=== PATIENT | female | born 1995 | race Caucasian/White ===

== ENCOUNTER 2018-01-22 05:57 | Inpatient (IN) | payer OTHER ==
--- NOTE | 2018-01-21 20:29 | History & Physical Pre-Op ---
General Information and HPI History of Present Illness: This patient is a 23-year-old 1 para 0 LMP 02/24/2017 EDC 01/26/2018 at 39 weeks and 2 days who presents for scheduled secondary to breech presentation. care is been complete and remarkable for gestational diabetes comanage with [facility], of which patient has been noncompliant with calling in her glucose values. She had a hemoglobin A1c taken today and the results are pending. Patient underwent failed external cephalic version of breech presentation secondary to pain. Allergies/Medications Allergies: Coded Allergies: NO KNOWN ALLERGIES (03/24/16) Home Med list Acetaminophen (Tylenol) 325 MG TAB PAIN (Reported) OXYCODONE HCL/ACETAMINOPHEN (Percocet 5-325 MG Tablet) 325 MG/5 MG TAB 1 TAB PO Q4P PRN PAIN SCALE 1-4 Yibuprofen (Motrin 800MG Tab) 800 MG TAB 800 MG PO Q6P PRN PAIN Past History Medical History Tetanus Vaccine: Surgical History Pertinent Surgical History: N cystectomy (pre) Review of Systems Review of Systems Constitutional: Reports: no symptoms. EENTM: Reports: no symptoms. Cardiovascular: Reports: no symptoms. Respiratory: Reports: no symptoms. GI: Reports: no symptoms. Genitourinary: Reports: no symptoms. Musculoskeletal: Reports: no symptoms. Skin: Reports: no symptoms. Neurological/Psychological: Reports: no symptoms. Hematologic/Endocrine: Reports: no symptoms. Immunologic/Allergic: Reports: no symptoms. All Other Systems: Reviewed and Negative Exam & Diagnostic Data Last 24 Hrs of Vital Signs/I&O vss Physical Exam: HEENT: Normocephalic atraumatic Neck: No JVD no thyromegaly Chest: Clear to auscultation bilaterally Cardiovascular: Normal S1, S2 Abdomen: Obese, cephalic, breech, estimated weight 7 pounds Extremities: No clubbing cyanosis or edema Neurologic: Nonfocal Assessment/Plan Assessment/Plan: Breech presentation at 39 weeks Plan: Primary section As Ranked By This Provider Problem List: 1. Breech presentation 2. Gestational diabetes
[~2018-01-22] VITALS: Ht 167.6 cm; Wt 126.6 kg
[~2018-01-22 05:57] MED LIST: MOTRIN 800MG T800 MG PO; OXYCODONE5 M1; PERCOCET 325 MG1 TA2 PO; TYLENOL325 MG
[2018-01-22 10:50] VITALS: BP 110/58
--- NOTE | 2018-01-22 17:53 | Operative Report ---
Operative/Inv Procedure Report Surgery Date: 01/22/18 Name of Procedure: Primary Pre-Operative Diagnosis: Breech presentation, failed external cephalic version Post-Operative Diagnosis: Same Estimated Blood Loss: 650 Surgeon/Case Repairer: Doris Tran MD,Satnam Martinez MD Anesthesia: laryngeal mask airway, spinal Operative/Procedure Note Note: The patient was brought to the operating room she placed on the OR table in the sitting position where she underwent spinal anesthetic without complication. She was repositioned into dorsal supine with a block under her right. Large Venodyne boots were placed on the extremities and activated. A Valdez catheter was inserted into the bladder and drained clear yellow urine. The abdomen was prepped and draped in the usual sterile fashion and tested. A Pfannenstiel skin incision was made with a scalpel and taken down to the layer of the fascia. The fascia was nicked in the midline and extended bilaterally. The underlying rectus muscles were and the peritoneal cavity was entered bluntly. A Timothy bladder blade was inserted to protect the bladder from the operative field. A bladder flap was created using Metzenbaum scissors and this was placed behind the bladder blade. A low transverse uterine incision was made with scalpel and this was extended bilaterally. A live-born female was delivered from jaspal breech presentation through the appropriate maneuvers and him and placed on the operative field. The cord was clamped and cut the nares and mouth were suctioned and the baby was handed off to the waiting trade manager. The placenta was then manually removed intact with three-vessel cord and sent to pathology. The uterus was then exteriorized and wiped clean with a wet lap sponge of all clot and tissue debris. The uterus was closed in 2 layers the first of 0 Polysorb followed by the second imbricating the first also 0 Polysorb. The fallopian tubes and ovaries appeared normal bilaterally. The abdomen and pelvis were copiously irrigated with warm normal saline. The uterus was placed back into the abdominal cavity and the suture line is once again visualized and noted to be hemostatic. At this point the rectus muscle with the peritoneum was reapproximated with a mattress suture. Fascia was then closed using #1 Polysorb in a running nonlocking fashion. Subcutaneous tissues were irrigated and coagulated were needed. The skin was closed using domi and a dry sterile dressing was applied to the wound. The patient was then transferred to recovery in satisfactory condition. All needle, sponge, and instrument counts were correct at the end of the procedure 4.
--- NOTE | 2018-01-22 17:53 | Labor & Delivery Summary ---
Delivery Summary Section: Section: primary Indication: Breech presentation Anesthesia: Spinal, LMA Placenta: Placenta: normal, 3 vessel, manual Baby's Weight: Pending skin the skin Apgars - 1 Min: 9 Apgars - 5 Min: 9
[2018-01-23 09:11] LABS: ABSOLUTE BASOPHIL COUNT 0 /CUMM (0.0-0.2); ABSOLUTE EOSINOPHIL COUNT 0.3 /CUMM (0.0-0.7); ABSOLUTE GRANULOCYTE CT 6.1 /CUMM (1.4-6.5); ABSOLUTE LYMPH COUNT 3.1 /CUMM (1.2-3.4); ABSOLUTE MONOCYTE COUNT 0.8 /CUMM (0.10-0.60); BASOPHIL % 0.4 % (0.0-2.0); EOSINOPHIL % 2.5 % (0-5); GRANULOCYTE % 59.8 % (42.2-75.2); HEMATOCRIT 28.3 % (37-47); MEAN CORPUSCULAR HGB 22.8 PG (27.0-31.0); MEAN CORPUSCULAR HGB CONC 31.5 G/DL (33.0-37.0); MEAN CORPUSCULAR VOLUME 72.3 FL (81.0-99.0); MEAN PLATELET VOLUME 9.5 FL (7.4-10.4); PLATELET COUNT 292 /CUMM (130-400); RBC DISTRIBUTION WIDTH 16.1 % (11.5-14.5); RED BLOOD CELL CT 3.92 /CUMM (4.20-5.40); WHITE BLOOD CELL COUNT 10.3 /CUMM (4.8-10.8)
--- NOTE | 2018-01-23 10:49 | PN- OBGYN ---
Surgical Brief Attending Note Brief Attending Note: Patient seen and evaluated. OOB to chair C/o pain but meds are helping Denies nausea nor vomiting AVSS Lungs clear Abdomen soft and bowel sounds present and wound intact (Serena) Extremities 1+ edema hct 28 and platelets wnl Rh positive POD#1 s/p LTCS for malpresentation and complicated by GDM. Advance diet as tolerated Pain mgmt strategies reviewed and benefits of binder reviewed VTE risk reduction with lovenox Anemia. MCV 70s. Continue on iron supplementation. GDM. Follow up A1c levels and will need 2 hour GTT in 6-12 weeks.
--- NOTE | 2018-01-24 09:19 | PN- OBGYN ---
Surgical Brief Attending Note Brief Attending Note: Seen and evaluated Denies complaints Flatus noted No bowel movement yet Denies nausea nor vomiting AVSS Lungs clear Abdomen soft and incisional tenderness Wound area intact POD#2 s/p LTCS for malpresentation Tolerating diet Ambulating well and on lovenox for vte risk reduction. Plan for dc in the am 01/25/18
[2018-01-25] MEDS ORDERED: IBUPROFEN800 M1 PO (07:43)
[2018-01-25] MEDS ORDERED: DOCUSATE SODIU100 M3 PO (07:43)
[2018-01-25] MEDS ORDERED: PERCOCET 5-3251 EACH PO (07:43)
== END 2018-01-25 10:45 | DRG 766 ==
LOC: GNO 05:57
PROVIDERS: Obstetrics & Gynecology
PROC: 10D00Z1 Extraction of Products of Conception, Low, Open Approach (ICD-10-PCS; principal; 2018-01-22)
DX: O32.1XX0 Maternal care for breech presentation, not applicable or unspecified (principal); O32.4XX0 Maternal care for high head at term, not applicable or unspecified; O24.429 Gestational diabetes mellitus in childbirth, unspecified control; Z3A.39 39 weeks gestation of pregnancy; Z37.0 Single live birth
CPT/HCPCS: 87086; J0690; J1650; J1885; J2210; J7120